=== PATIENT | male | born 1965 | race Caucasian/White ===

== ENCOUNTER 2018-02-03 09:55 | Day surgery (SDC) | payer MEDICAID ==
[~2018-02-03] VITALS: Ht 177.8 cm; Wt 76.4 kg
[~2018-02-03 09:55] MED LIST: FURO-149 PO; GABA-532 PO; GABA600T2 PO; MAG400T PO; MULT-933 PO; OXYC20TA55 PO; PANT-47 PO; PROP10TA10 PO; SPIR100T5 PO
[2018-02-03] MEDS ORDERED: fentaNYL/PF 50MCG/1 ML 2ML syringe ONE (10:05)
[2018-02-03] MEDS ORDERED: LIDOcaine Viscous 15ml cup ONE (10:06)
[2018-02-03] MEDS ORDERED: MIDAZolam 5mg/5ml vial ONE (10:06)
[2018-02-03 10:26] VITALS: BP 120/88
[2018-02-03 11:05] VITALS: BP 120/88
[2018-02-03 11:15] VITALS: BP 105/73
[2018-02-03 11:25] VITALS: BP 115/80
== END 2018-02-03 11:55 | disposition home or self-care (01) ==
LOC: GI LAB 09:55
PROVIDERS: ATTEND Internal Medicine Gastroenterology
DX: I85.00 Esophageal varices without bleeding (principal); K76.6 Portal hypertension; K21.9 Gastro-esophageal reflux disease without esophagitis; F10.21 Alcohol dependence, in remission; Z79.891 Long term (current) use of opiate analgesic; Z88.0 Allergy status to penicillin; Z88.5 Allergy status to narcotic agent; Z87.891 Personal history of nicotine dependence; Z98.890 Other specified postprocedural states; Z79.899 Other long term (current) drug therapy
CPT/HCPCS: 43244; 99152; J2250; J3010; J7030; A4620; G0500

== ENCOUNTER 2018-04-24 11:41 | Emergency (ER) | payer MEDICAID ==
[~2018-04-24] VITALS: Ht 180.3 cm; Wt 65.0 kg
[2018-04-24 11:46] VITALS: BP 125/77
[2018-04-24] MEDS ORDERED: LIDOcaine 1.5% w/epinephrine 1:200,000 5ml ampul IJ ONE (13:15)
[2018-04-24] MEDS ORDERED: TETanus/Pertussis (Acell)/Diphther VAC/PF (Tdap-Adult) 0.5ml syringe IM ONE (13:15)
[2018-04-24 14:38] LABS: APPEARANCE,SYNOVIAL FLUID CLOUDY; COLOR,SYNOVIAL FLUID YELLOW; CRYSTAL ID, SYN FLD URIC ACID; LYMPHOCYTES,SYNOVIAL FLUID 5 % (0-75); MONOCYTES,SYNOVIAL FLUID 10 % (0-0); NEUTROPHILS,SYNOVIAL FLUID 85 % (0-25); SYN RBC 295 /CU MM (0); SYN WBC 2660 /CU MM (0-200)
[2018-04-24 14:39] LABS: SYNOVIAL FLUID CRYSTALS QT FEW
[2018-04-24 14:48] LABS: GLUCOSE,SYNOVIAL FLUID 110 MG/DL
[2018-04-24] MEDS ORDERED: PRED50TA PO (14:56)
== END 2018-04-24 15:03 | disposition home or self-care (01) ==
LOC: ER 11:42
DX: M25.461 Effusion, right knee (principal); M10.9 Gout, unspecified; M25.561 Pain in right knee; K21.9 Gastro-esophageal reflux disease without esophagitis; Z56.0 Unemployment, unspecified; Z98.890 Other specified postprocedural states; Z88.0 Allergy status to penicillin; Z88.5 Allergy status to narcotic agent; Z79.899 Other long term (current) drug therapy
CPT/HCPCS: 20610; 29505; 82945; 84157; 87070; 89051; 89060; 90471; 90715; 99284; A6257; A6449; J3490

== ENCOUNTER 2018-05-04 11:02 | Emergency (ER) | payer MEDICAID ==
[~2018-05-04] VITALS: Ht 177.8 cm; Wt 70.3 kg
[~2018-05-04 11:02] MED LIST changes: +PRED50TA PO
[2018-05-04] MEDS ORDERED: LIDOcaine 1.5% w/epinephrine 1:200,000 5ml ampul IJ ONE (11:20)
[2018-05-04 11:29] VITALS: BP 109/84
[2018-05-04] MEDS: ketorolac trometh inj. 60 MG/2 ML VIAL IM ONE ×2 (12:01→12:05)
[2018-05-04 12:46] LABS: APPEARANCE,SYNOVIAL FLUID CLOUDY; COLOR,SYNOVIAL FLUID YELLOW; LYMPHOCYTES,SYNOVIAL FLUID 0 % (0-75); MONOCYTES,SYNOVIAL FLUID 2 % (0-0); NEUTROPHILS,SYNOVIAL FLUID 98 % (0-25); SYN RBC 375 /CU MM (0); SYN WBC 9750 /CU MM (0-200); SYNOVIAL FLUID CRYSTALS QT NO CRYSTALS SEEN
[2018-05-04 12:47] LABS: GLUCOSE,SYNOVIAL FLUID 104 MG/DL; TOTAL PROTEIN,SYNOVIAL FLUID 5.7 GM/DL
[2018-05-04] MEDS ORDERED: PRED20TA PO (13:06)
== END 2018-05-04 14:05 | disposition home or self-care (01) ==
LOC: ER 11:03
DX: M25.461 Effusion, right knee (principal); M25.561 Pain in right knee; K21.9 Gastro-esophageal reflux disease without esophagitis; Z56.0 Unemployment, unspecified; Z88.6 Allergy status to analgesic agent; Z88.0 Allergy status to penicillin
CPT/HCPCS: 20610; 82945; 84157; 87070; 89051; 89060; 96372; 99284; A6449; J1885; J3490

== ENCOUNTER 2018-08-24 06:51 | Emergency (ER) | payer MEDICAID ==
[~2018-08-24] VITALS: Ht 177.8 cm; Wt 53.0 kg
[~2018-08-24 06:51] MED LIST changes: -GABA-532 PO; +GABA600T13 PO; -GABA600T2 PO; -PANT-47 PO; +POTA10TA15 PO; +PRED10TA23 PO; -PRED50TA PO; -PROP10TA10 PO; +RANI300T4 PO; -SPIR100T5 PO
[2018-08-24 06:59] VITALS: BP 111/74
== END 2018-08-24 08:15 | disposition home or self-care (01) ==
LOC: ER 06:52
DX: S01.01XD Laceration without foreign body of scalp, subsequent encounter (principal); K21.9 Gastro-esophageal reflux disease without esophagitis; Z56.0 Unemployment, unspecified; Z88.0 Allergy status to penicillin; Z88.5 Allergy status to narcotic agent; X58.XXXD Exposure to other specified factors, subsequent encounter
CPT/HCPCS: 99282

== ENCOUNTER 2018-08-29 06:27 | Emergency (ER) | payer MEDICAID ==
[~2018-08-29] VITALS: Ht 177.8 cm; Wt 76.4 kg
[2018-08-29 06:32] VITALS: BP 107/81
--- NOTE | 2018-08-29 07:40 | NUR ---
DR. VIRK AT BEDSIDE.
[2018-08-29] MEDS ORDERED: LIDOcaine 1% 30ml preserv. free vial IJ ONE (07:45)
[2018-08-29 08:36] LABS: ALANINE AMINOTRANSFERASE 26 U/L (12-78); ALBUMIN/GLOBULIN RATIO 0.6 (1.1-1.5); ALKALINE PHOSPHATASE 187 IU/L (46-116); ANION GAP 10 (8-16); ASPARTATE AMINO TRANSFERASE 31 U/L (10-37); BILIRUBIN,TOTAL 1.9 MG/DL (0.1-1.0); BLOOD UREA NITROGEN 8 MG/DL (7-18); BUN/CREATININE RATIO 7.7 (5.4-32.0); CHLORIDE 92 MMOL/L (99-107); CREATININE 1.04 MG/DL (0.60-1.10); GLUCOSE 108 MG/DL (70-104); SODIUM 135 MMOL/L (135-145); TOTAL CARBON DIOXIDE 32.8 MMOL/L (24-32); TOTAL PROTEIN 7.8 G/DL (6.4-8.2); eGFR 74 ML/MIN
[2018-08-29 08:43] LABS: BASOPHILS % (AUTO) 0.2 % (0-1); EOSINOPHILS # (AUTO) 0.1 X10'3 (0-0.9); EOSINOPHILS % (AUTO) 1.1 % (0-6); HEMATOCRIT 33.2 % (42.0-52.0); HEMOGLOBIN 11.6 g/dl (14.0-17.9); LYMPHOCYTES # (AUTO) 1.3 X10'3 (1.1-4.8); LYMPHOCYTES % (AUTO) 17.4 % (21-51); MEAN CORPUSCULAR HEMOGLOBIN 35.9 PG (27.0-31.0); MEAN CORPUSCULAR VOLUME 102.6 FL (78-98); MEAN PLATELET VOLUME 7.1 FL (7.4-10.4); MONOCYTES # (AUTO) 0.6 X10'3 (0-0.9); MONOCYTES % (AUTO) 7.8 % (2-12); NEUTROPHILS # (AUTO) 5.7 X10'3 (1.8-7.7); NEUTROPHILS % (AUTO) 73.5 % (42-75); PLATELET COUNT 103 X10'3 (140-440); RED BLOOD COUNT 3.24 X10'6 (4.70-6.10); RED CELL DISTRIBUTION WIDTH 15.3 % (11.5-14.5); WHITE BLOOD COUNT 7.7 X10'3 (4.5-11.0)
[2018-08-29 08:49] LABS: POTASSIUM 2.3 MMOL/L (3.5-5.1)
[2018-08-29] MEDS ORDERED: potassium Cl 20 mEq SR tablet PO STA (08:55)
--- NOTE | 2018-08-29 08:56 | NUR ---
VERBAL ORDER RECEIVED FOR K [address] VIRK.
[2018-08-29] MEDS ORDERED: colchicine 0.6mg tablet PO ONE (09:05)
[2018-08-29 10:46] LABS: LYMPHOCYTES,BODY FLUID 1 %; MONOCYTES,BODY FLUID 2 %; NEUTROPHILS,BODY FLUID 97 %
[2018-08-29 10:47] LABS: BFAPPEAR CLOUDY; BFCOLOR YELLOW; BFVOLUME 30 ML
[2018-08-29 10:48] LABS: BF RBC COUNT 700 /CU MM; BF WBC COUNT 17500 /CU MM (0-1000); BODY FLUID CRYSTALS QT MODERATE (NONE SEEN)
== END 2018-08-29 09:22 | disposition home or self-care (01) ==
LOC: ER 06:28
DX: M25.461 Effusion, right knee (principal); M10.061 Idiopathic gout, right knee; E87.6 Hypokalemia; K21.9 Gastro-esophageal reflux disease without esophagitis; Z95.1 Presence of aortocoronary bypass graft; Z86.73 Personal history of transient ischemic attack (TIA), and cerebral infarction without residual deficits; Z87.891 Personal history of nicotine dependence; Z56.0 Unemployment, unspecified; Z88.6 Allergy status to analgesic agent; Z88.0 Allergy status to penicillin
CPT/HCPCS: 20610; 36415; 80053; 85025; 85651; 87205; 89051; 89060; 99284; J3490

== ENCOUNTER 2019-02-16 13:52 | Day surgery (SDC) | payer MEDICAID ==
[~2019-02-16] VITALS: Ht 180.3 cm; Wt 75.0 kg
[~2019-02-16 13:52] MED LIST changes: +LIDOcaine Viscous 15ml cup ONE; +MIDAZolam 5mg/5ml vial ONE; -PRED10TA23 PO; +fentaNYL/PF 50MCG/1 ML 2ML syringe ONE
[2019-02-16 14:20] VITALS: BP 135/79
[2019-02-16 15:52] VITALS: BP 120/90
[2019-02-16 16:07] VITALS: BP 121/62
[2019-02-16 16:17] VITALS: BP 105/59
[2019-02-16 16:27] VITALS: BP 105/70
[2019-02-16 16:37] VITALS: BP 107/78
== END 2019-02-16 16:40 | disposition home or self-care (01) ==
LOC: GI LAB 13:52
PROVIDERS: ATTEND Internal Medicine Gastroenterology
DX: I85.00 Esophageal varices without bleeding (principal); K76.6 Portal hypertension; K31.89 Other diseases of stomach and duodenum; K22.8 Other specified diseases of esophagus
CPT/HCPCS: 43244; 99152; J2250; J3010; J7030; A4620; J7040

== ENCOUNTER 2020-04-06 08:45 | Day surgery (SDC) | payer MEDICAID ==
[~2020-04-06] VITALS: Ht 160 cm; Wt 74.1 kg
[2020-04-06 08:15] VITALS: BP 106/84
[~2020-04-06 08:45] MED LIST changes: -FURO-149 PO; -LIDOcaine Viscous 15ml cup ONE; -MIDAZolam 5mg/5ml vial ONE; -fentaNYL/PF 50MCG/1 ML 2ML syringe ONE
[2020-04-06] MEDS ORDERED: GABA600T13 PO (08:55)
[2020-04-06] MEDS ORDERED: GABA300C PO (08:56)
[2020-04-06] MEDS ORDERED: ALLO100T25 PO (08:57)
[2020-04-06] MEDS ORDERED: PANT-47 PO (08:57)
[2020-04-06] MEDS ORDERED: fentaNYL/PF 50MCG/1 ML 2ML syringe ONE (09:07)
[2020-04-06] MEDS ORDERED: MIDAZolam 5mg/5ml vial ONE (09:08)
[2020-04-06] MEDS ORDERED: LIDOcaine Viscous 15ml cup ONE (09:08)
[2020-04-06 10:42] VITALS: BP 121/84
[2020-04-06 10:52] VITALS: BP 142/79
[2020-04-06 11:02] VITALS: BP 105/71
[2020-04-06 11:12] VITALS: BP 112/79
== END 2020-04-06 11:14 | disposition home or self-care (01) ==
LOC: GI LAB 08:45
PROVIDERS: ATTEND Internal Medicine Gastroenterology
DX: I85.00 Esophageal varices without bleeding (principal); K22.8 Other specified diseases of esophagus; K76.6 Portal hypertension; K31.89 Other diseases of stomach and duodenum
CPT/HCPCS: 43235; 99152; J2250; J3010; J7040; A4620

== ENCOUNTER 2021-01-08 13:23 | Emergency (ER) | payer MEDICAID ==
[~2021-01-08] VITALS: Ht 177.8 cm; Wt 77.3 kg
[~2021-01-08 13:23] MED LIST changes: +ALLO100T25 PO; +GABA300C PO; +LIDOcaine 1% W/epiNEPHrine 1:100,000 20ml vial ONE; +PANT-47 PO; -POTA10TA15 PO; -RANI300T4 PO
[2021-01-08 13:35] VITALS: BP 129/80
[2021-01-08] MEDS ORDERED: ONDA4TAB6 PO (15:48)
[2021-01-08] MEDS ORDERED: SULF1TAB49 PO (15:48)
[2021-01-08] MEDS ORDERED: HYDR-3965 PO (15:48)
[2021-01-08] MEDS ORDERED: bacitracin 15gm ointment TP ONE (15:50)
== END 2021-01-08 16:14 | disposition home or self-care (01) ==
LOC: ER 13:24
DX: L02.512 Cutaneous abscess of left hand (principal); K21.9 Gastro-esophageal reflux disease without esophagitis; K74.60 Unspecified cirrhosis of liver; M10.9 Gout, unspecified; K72.90 Hepatic failure, unspecified without coma; Z98.890 Other specified postprocedural states; Z56.0 Unemployment, unspecified; Z88.0 Allergy status to penicillin; Z88.8 Allergy status to other drugs, medicaments and biological substances; Z79.899 Other long term (current) drug therapy
CPT/HCPCS: 26010; 73140; 99283

== ENCOUNTER 2021-02-02 06:04 | Emergency (ER) | payer MEDICAID ==
[~2021-02-02] VITALS: Ht 177.8 cm; Wt 77.3 kg
[~2021-02-02 06:04] MED LIST changes: +HYDR-3965 PO; -LIDOcaine 1% W/epiNEPHrine 1:100,000 20ml vial ONE; +ONDA4TAB6 PO
[2021-02-02 06:09] VITALS: BP 110/75
--- NOTE | 2021-02-02 08:49 | NUR ---
Patient was not in lobby x3. Attempted to call patient at listed number, no answer. Dr. Carmona aware
== END 2021-02-02 08:50 | disposition left against medical advice (07) ==
LOC: ER 06:05
DX: M79.602 Pain in left arm (principal); Z53.21 Procedure and treatment not carried out due to patient leaving prior to being seen by health care provider
CPT/HCPCS: 73110

== ENCOUNTER 2021-02-02 09:24 | Emergency (ER) | payer MEDICAID ==
[~2021-02-02] VITALS: Ht 177.8 cm; Wt 77.3 kg
[2021-02-02 09:56] VITALS: BP 129/89
--- NOTE | 2021-02-02 12:00 | NUR ---
Registration notified me regarding patient wanting to leave before getting treatment. I asked registration to notify patient that we have a page out to our orthotist or prosthetist and should be getting him back to get splint on. Patient agreed to wait.
--- NOTE | 2021-02-02 12:30 | NUR ---
Patient again notified registration that he was not going to stay any longer. Patient left ER lobby before I was able to go out to the lobby to speak with patient. ALEKSANDRA De La Cruz aware.
== END 2021-02-02 13:22 | disposition left against medical advice (07) ==
LOC: ER 09:25
DX: S52.612A Displaced fracture of left ulna styloid process, initial encounter for closed fracture (principal); M25.532 Pain in left wrist; K21.9 Gastro-esophageal reflux disease without esophagitis; M10.9 Gout, unspecified; Z98.890 Other specified postprocedural states; Z56.0 Unemployment, unspecified; Z88.0 Allergy status to penicillin; Z88.5 Allergy status to narcotic agent; Z79.899 Other long term (current) drug therapy; W19.XXXA Unspecified fall, initial encounter; Y93.89 Activity, other specified; Y92.89 Other specified places as the place of occurrence of the external cause; Y99.8 Other external cause status
CPT/HCPCS: 99281

== ENCOUNTER 2021-02-02 17:30 | Emergency (ER) | payer MEDICAID ==
[~2021-02-02] VITALS: Ht 177.8 cm; Wt 77.3 kg
[2021-02-02 17:37] VITALS: BP 117/80
== END 2021-02-02 18:56 | disposition home or self-care (01) ==
LOC: ER 17:31
DX: S52.612A Displaced fracture of left ulna styloid process, initial encounter for closed fracture (principal); M25.532 Pain in left wrist; K21.9 Gastro-esophageal reflux disease without esophagitis; M10.9 Gout, unspecified; Z98.890 Other specified postprocedural states; Z56.0 Unemployment, unspecified; Z88.0 Allergy status to penicillin; Z88.5 Allergy status to narcotic agent; Z79.899 Other long term (current) drug therapy; X58.XXXA Exposure to other specified factors, initial encounter; Y93.89 Activity, other specified; Y92.89 Other specified places as the place of occurrence of the external cause; Y99.8 Other external cause status
CPT/HCPCS: 29125; 99282; 99283

== ENCOUNTER → 2024-03-06 | Outpatient (CLI) | payer MEDICAID ==
[~2024-03-06] MED LIST changes: -HYDR-3965 PO
== END | disposition home or self-care (01) ==
LOC: RAD 11:09
PROVIDERS: ATTEND Nurse Practitioner Family
DX: K70.30 Alcoholic cirrhosis of liver without ascites (principal)
CPT/HCPCS: 76705

== ENCOUNTER 2024-07-04 09:28 | Emergency (ER) | payer MEDICAID ==
[~2024-07-04] VITALS: Ht 177.8 cm; Wt 75.8 kg
[~2024-07-04 09:28] MED LIST changes: +GABA-1405 PO; -GABA600T13 PO
[2024-07-04] MEDS: fluorescein sod 1mg ophthalmic strip RIGHTEYE ONE (10:00)
[2024-07-04] MEDS: proparacaine 0.5% ophthalmic drops 15ml RIGHTEYE ONE (10:34)
[2024-07-04] MEDS ORDERED: POLOS EACHEYE (12:04)
[2024-07-04 12:12] VITALS: BP 136/92; PULSE 76; RESP 14; TEMP 98; O2SAT 99
== END 2024-07-04 12:16 | disposition home or self-care (01) ==
LOC: ER 09:29
DX: T15.01XA Foreign body in cornea, right eye, initial encounter (principal); K21.9 Gastro-esophageal reflux disease without esophagitis; Z88.0 Allergy status to penicillin; Z88.5 Allergy status to narcotic agent; Z95.1 Presence of aortocoronary bypass graft; W44.9XXA Unspecified foreign body entering into or through a natural orifice, initial encounter; Y93.89 Activity, other specified; Y92.89 Other specified places as the place of occurrence of the external cause; Y99.8 Other external cause status
CPT/HCPCS: 65220; 65222; 99284

== ENCOUNTER → 2025-01-15 | Outpatient (CLI) | payer MEDICAID ==
--- NOTE | 2025-01-15 16:31 | RADIOLOGY REPORT ---
EXAM: MR MRI LOWER EXTREMITY RIGHT INDICATION: EFFUSION, RIGHT ANKLE TECHNIQUE: Multiplanar and multisequence MR imaging of the right ankle was performed in the absence o f gadolinium contrast. COMPARISON: None FINDINGS: MEDIAL ANKLE: Intact posterior tibialis, flexor hallucis longus, and flexor digitorum tendons. Intact deltoid ligament. Intact spring ligament complex. LOW LATERAL ANKLE: Thickening of the anterior talofibular ligament with small adjacent ossicles sugge stive of prior injury. Intact peroneal brevis and longus tendons without tenosynovitis. HIGH LATERAL ANKLE: Intact anterior and posterior inferior tibiofibular ligaments. ANTERIOR ANKLE: Intact anterior tibialis, extensor digitorum longus, and extensor hallucis longus ten dons. POSTERIOR ANKLE: No tibiotalar or subtalar joint effusion. Normal sinus Tarsi. Normal plantar fascia. Normal Achilles tendon. No retrocalcaneal bursitis. MIDFOOT: Normal. BONES: No acute fracture, osseous contusion, or aggressive osseous lesion. MUSCLES: Normal. NEUROVASCULAR: Normal tarsal tunnel OTHER: None IMPRESSION: 1. Thickening of the anterior talofibular ligament with small adjacent ossicles suggestive of prior i njury.
== END | disposition home or self-care (01) ==
LOC: MRI02 01:19
PROVIDERS: ATTEND Podiatrist Foot & Ankle Surgery
DX: M25.471 Effusion, right ankle (principal); M21.6X1 Other acquired deformities of right foot; M19.071 Primary osteoarthritis, right ankle and foot; M25.571 Pain in right ankle and joints of right foot; M19.072 Primary osteoarthritis, left ankle and foot; M25.572 Pain in left ankle and joints of left foot
CPT/HCPCS: 73721

== ENCOUNTER 2025-06-15 17:24 | Emergency (ER) | payer MEDICAID ==
[~2025-06-15] VITALS: Ht 177.8 cm; Wt 75.0 kg
--- NOTE | 2025-06-15 17:45 | Physician Documentation ---
History of Present Illness ~ Chief Complaint: Knee Pain Stated Complaint: L KNEE PAIN Time Seen by MD: 17:40 Primary Medical Doctor: NONE HPI 60-year-old male who presents via POV for evaluation of left knee injury. He states while stepping off a ladder and hyperextends your hyperextension type injury to the left knee. Lentner a pop and has some swelling. No prior history of the same. Tetanus witin 5 years: Yes Medication Reconciliation Allergies: Coded Allergies: Penicillins (Verified Adverse Reaction, Unknown, ITCHING, NO ALLERGIC, 06/15/25) codeine (Verified Adverse Reaction, Unknown, ITCHING, 06/15/25) Scheduled Allopurinol (Allopurinol), 1 TAB PO DAILY, (Reported) Fluticasone Propionate (Fluticasone Propionate), 1 SPRAYS BOTHNARES DAILY, (Reported) Gabapentin (Gabapentin), 1 TAB PO q12, (Reported) Gabapentin (Neurontin), 1 CAP PO noon, (Reported) Loratadine (Loratadine), 1 TAB PO DAILY, (Reported) Magnesium Oxide* (Mag-Ox*), 1 TAB PO DAILY, (Reported) Multivitamin (One Daily Multivitamin), 1 TAB PO DAILY, (Reported) Ondansetron Hcl (Zofran), 1 TAB PO Q6H Pantoprazole Sodium (PROTONIX tablet), 1 TAB PO DAILY, (Reported) Discontinued Medications Oxycodone Hcl (Oxycodone Hcl), 1 TAB PO BID PRN for pain, (Reported) Discontinued Reason: patient no longer taking Past Medical History Past Medical History: Cirrohsis, GERD, Liver Failure, Gout Past Surgical History: orthopedic surgeries Patient History: (CABG) Coronary artery bypass grafting (CVA) Cerebrovascular accident MOTHER, Onset:60 years & older (Cancer) Malignant carcinoid tumor SISTER, Onset:50's - 60 BROTHER, Onset:60 years & older FH: Parkinson's disease FATHER, , Age: 60 years and older, Cause: Parkinson disease FHx: hypertension MOTHER No Family History of: (CAD) Coronary arteriosclerosis (CHF) Congestive heart failure (COPD) Chronic obstructive lung disease (DM Type 2) Diabetes mellitus type 2 (DM Type1) Diabetes mellitus type 1 (SD) Myocardial infarction (PVD) Peripheral vascular disease (TIA) Transient ischemic attack Alzheimer's disease Aortic aneurysm Asthma Cardiac arrest Alcohol Use: None Drug Use: none Lives with: Mother Lives In: Home Occupation: unemployed Review of Systems All Other Systems at this time: Reviewed and Negative Musculoskeletal: Reports: joint pain, joint swelling Physical Exam Vital Signs: RN Vital Signs have been reviewed: Yes, Temperature: 97.8, Source: Oral, Heart Rate: 85, Respiratory Rate: 18, BP: 114/63, Pulse Oximetry: 98, Weight: 75.000 Oxygen Flow Rate: 0 General Appearance: alert, WD/WN, moderate distress Head: normal inspection EENT: PERRL/EOMI Knees: limited ROM, soft tissue tenderness, swelling Knees Moderate pain limiting full knee examination. Grossly neurologically intact. Distal CMS. No obvious laxity. Distal Function: no motor deficit, no sensory deficit Skin: normal color, warm/dry Progress Results/Orders Results/Orders Orders - JOAQUÍN STEIN PAC Ortho Orders (06/15/25 ) Knee, Complete (06/15/25 17:49) Ct Lower Extremity (06/15/25 18:50) Completed Orders - JOAQUÍN STEIN Knee, Complete (06/15/25 17:49) Oxycodone/Acetaminophen Tablet (Percocet (06/15/25 17:45) Ct Lower Extremity (06/15/25 18:50) Medications Received in ER Medications (Trade) Dose Ordered Sig/Vicki Route PRN Reason Start Time Stop Time Status Last Admin Dose Admin (Percocet 5-325mg tab) 1 tab ONCE ONCE PO 06/15/25 17:45 06/15/25 17:46 DC 06/15/25 17:52 1 TAB Vital Signs 06/15/25 06/15/25 06/15/25 17:40 17:52 18:28 Temp 97.8 Pulse 85 Resp 18 20 20 B/P (MAP) 114/63 Pulse Ox 98 O2 Flow Rate 0 Medical Decision Making Additional information obtaine: N/A Findings Examination history warrants x-ray imaging to evaluate for alexander arthrosis, fracture or other bony lesions. Abortive pain management provided in the form of Percocet. Knee immobilizer and crutches for comfort and support. Aftercare instructions. Suspected internal knee derangement with fracture requiring primary care and orthopedic follow up. General Diff Dx:Considerations: Include: Sprain Knee Diff Dx:Considerations: Include: Sprain, Sprain-MCL, Sprain-LCL, Sprain- ACL, Sprain-PCL Ankle Diff Dx:Considerations: Include: Other Foot Diff Dx:Considerations: Include: Other Toe Diff Dx:Considerations: Include: Other (Noncontributory) Departure Disposition: HOME / SELF CARE / HOMELESS Impression: Primary Impression: Tibial plateau fracture, left Qualified Codes: S82.142A - Displaced bicondylar fracture of left tibia, initial encounter for closed fracture Additional Impressions: Effusion of knee Qualified Codes: M25.462 - Effusion, left knee ACL injury tear Qualified Codes: S83.512A - Sprain of anterior cruciate ligament of left knee, initial encounter Condition: Improved Discharge Instructions: Knee Effusion, Nondisplaced Tibial Plateau Fracture Additional Instructions: Your CT confirms you have a Tibial Plateau fracture. You must follow up with the Orthopedist as directed and not place any weight on your left leg. Keep your knee immobilizer in place and use crutches. Take pain medication as directed and return to Emergency as needed. Referrals: NO PRIMARY CARE PROVIDER (PCP) SHAUN VALENCIA Jr., MD 2-4 days 60 y/o M Closed Tibial Plateau Fx Thank you from [facility] ER Prescriptions Ibuprofen* (Motrin*) 400 Mg Tablet 1 TAB PO Q8H for pain or fever for 10 Days, #30 TAB Prov: JOAQUÍN STEIN 06/15/25 Oxycodone HCl/Acetaminophen (Percocet 5-325 mg Tablet) 5 Mg-325 Mg Tablet 1-2 TABLET PO Q6H PRN for pain, #20 TABLET Prov: JOAQUÍN STEIN 06/15/25 Education Educated: Patient Educated regarding: diagnosis, treatment, prognosis, need for follow up Signature Scribe Signature: . Attestation: . JOAQUÍN STEIN Jun 15, 2025 17:45
[2025-06-15] MEDS: oxyCODONE/APAP 5-325mg tablet PO ONE (17:52)
[2025-06-15] MEDS ORDERED: FLUT16SP26 BOTHNARES (17:58)
[2025-06-15] MEDS ORDERED: LORA10TA7 PO (17:58)
--- NOTE | 2025-06-15 18:21 | RADIOLOGY REPORT ---
Indication: hyperextension injury LEFT Technique: DI KNEE, COMP 4 VW MINKNEE CMPT Comparison: None FINDINGS/IMPRESSION: Fracture of the tibial plateau/intercondylar eminence region which appears to extend to the posterior tibial plateau. Recommend CT of the left knee to further evaluate. Large suprapatellar effusion likely related to the underlying tibial fracture. Moderate left knee tricompartmental degenerative joint disease.
--- NOTE | 2025-06-15 19:11 | RADIOLOGY REPORT ---
INDICATION: Tibial plt fx. Pain. COMPARISON: DI KNEE, COMP 4 VW MIN on DOS: 06/15/25, MR MRI LOWER EXTREMITY RIGHT on DOS: 01/15/25, WRIST, COMPLETE (3VW MIN) on DOS: 02/02/21, FINGER(S) on DOS: 01/08/21 TECHNIQUE: CT of the right knee was performed without contrast. Volume transverse images were obtained and reconstructed in multiple planes using bone and soft tissue algorithms. Radiation Dose Information: CT Dose: CTDI volume is 16.76 mGy. Dose-length product is 457.87 mGy*cm FINDINGS: Few avulsed fracture fragments at the ACL insertion on the central tibial plateau. Comminuted fracture of the posterior aspect of the tibial plateau involving both of the medial and lateral compartments. No distal femoral, patellar, or proximal fibular fracture. Large lipohemarthrosis. IMPRESSION: Comminuted fracture of the posterior aspect of the tibial plateau involving both the medial and lateral compartments. Avulsion fracture of the ACL insertion on the tibial plateau. All CT scans at this medical facility are performed using dose modulation techniques as appropriate to a performed exam including the following: Automated exposure control was utilized; adjustment of the MA and/or KV according to patient size; and use of iterative reconstruction technique.
[2025-06-15] MEDS ORDERED: IBUP-1984 PO (19:21)
[2025-06-15] MEDS ORDERED: OXYC-145 PO (19:21)
[2025-06-15 19:36] VITALS: BP 116/61; PULSE 82; RESP 20; TEMP 97.1; O2SAT 100
== END 2025-06-15 19:37 | disposition home or self-care (01) ==
LOC: ER 17:24
DX: S82.142A Displaced bicondylar fracture of left tibia, initial encounter for closed fracture (principal); K21.9 Gastro-esophageal reflux disease without esophagitis; Z56.0 Unemployment, unspecified; Z88.0 Allergy status to penicillin; Z88.5 Allergy status to narcotic agent; Z95.1 Presence of aortocoronary bypass graft; Z79.899 Other long term (current) drug therapy; Z98.890 Other specified postprocedural states; X50.9XXA Other and unspecified overexertion or strenuous movements or postures, initial encounter; Y93.89 Activity, other specified; Y92.89 Other specified places as the place of occurrence of the external cause; Y99.8 Other external cause status
CPT/HCPCS: 29505; 73564; 73700; 99284

== ENCOUNTER 2025-07-15 10:26 | Outpatient (CLI) | payer MEDICAID ==
[~2025-07-15 10:26] MED LIST changes: +FLUT16SP26 BOTHNARES; +LORA10TA7 PO; +OXYC-145 PO; -OXYC20TA55 PO
--- NOTE | 2025-07-15 13:32 | RADIOLOGY REPORT ---
CLINICAL INDICATION: PAIN IN LEFT KNEE TECHNIQUE: Multiplanar, multisequence MRI of the left knee was performed without contrast. Contrast: None. COMPARISON: CT CT LOWER EXTREMITY on DOS: 06/15/25, DI KNEE, COMP 4 VW MIN on DOS: 06/15/25, MR MRI LOWER EXTREMITY RIGHT on DOS: 01/15/25 FINDINGS: Joint space and synovium: There is large knee joint effusion. No synovitis. There is cervantes's cyst measuring 1 cm. Bones and articular cartilage: There is patchy bone marrow edema in the medial tibial eminence and lateral tibial plateau. There is a low signal intensity fracture plain through the tibial eminence. There is subtle T1 hypointensity in the lateral tibial plateau which could represent the fracture plane but this is not well visualized. There is a separate fracture in the medial tibial plateau. No abnormal alignment. There is bone marrow edema in the fibular head. Mild bone marrow edema noted in the inferior patella. No significant articular cartilage loss in the patellofemoral compartment. No significant articular cartilage loss noted in the medial or lateral tibiofemoral compartments. Menisci: The medial meniscus is intact. The lateral meniscus is intact. Tendons and ligaments: The tendons in the posterior knee are intact. The extensor mechanism is intact. The anterior cruciate ligament is torn at the tibial eminence. The posterior cruciate ligament is intact. The medial collateral ligament and the lateral collateral ligament stabilizing complex are intact. Muscles: Regional muscles are preserved in bulk and signal characteristics. Other: None. IMPRESSION: 1. Nondisplaced fracture of the medial tibial eminence in the left knee. Fracture of the medial tibial plateau. 2. Fracture in the lateral tibial plateau. 3. Bone marrow edema in the fibular head and inferior patella without fracture line compatible with contusion. 4. Large knee joint effusion. 5. ACL tear at the tibial eminence. 6. No meniscus tear.
== END 2025-07-15 23:59 | disposition home or self-care (01) ==
LOC: MRI02 10:26
PROVIDERS: ATTEND Pediatrics Sports Medicine
DX: S82.145A Nondisplaced bicondylar fracture of left tibia, initial encounter for closed fracture (principal); S83.511A Sprain of anterior cruciate ligament of right knee, initial encounter; R60.0 Localized edema; M25.562 Pain in left knee; X58.XXXA Exposure to other specified factors, initial encounter; M25.362 Other instability, left knee; Y93.89 Activity, other specified; M25.461 Effusion, right knee; M71.21 Synovial cyst of popliteal space [Baker], right knee; Y92.89 Other specified places as the place of occurrence of the external cause; Y99.8 Other external cause status
CPT/HCPCS: 73721